=== PATIENT | male | born 1940 | race Asian ===

== ENCOUNTER → 2017-08-02 | Outpatient (CLI) | payer MEDICARE, OTHER ==
[~2017-08-02] MED LIST: ASPI81 PO; AZEL23SP NS; BRIM155OS OU; CALC-1009 PO; CHOL200016 PO; DUTA.5 PO; ESOM20CA31 PO; GABA-529 PO; METO25 PO; MULT-1239 PO; MV-M1TAB2 PO; SIMV5TAB6 PO; TAMS-1 PO; XALA2.5OS OU
== END | disposition home or self-care (01) ==
LOC: RADPV 12:34
PROVIDERS: ATTEND Internal Medicine Pulmonary Disease
DX: R06.00 Dyspnea, unspecified (principal); R05 Cough; I70.0 Atherosclerosis of aorta
CPT/HCPCS: 71020

== ENCOUNTER → 2018-01-19 | Outpatient (CLI) | payer MEDICARE, OTHER ==
[2018-01-19 12:34] LABS: BASOPHILS % (AUTO) 0.5 % (0.0-2.0); EOSINOPHILS % (AUTO) 3.2 % (1.0-6.0); HEMATOCRIT 47.5 % (41-53); HEMOGLOBIN 16.3 g/dL (13.5-17.5); LYMPHOCYTES # (AUTO) 1.5 K/uL (1.0-4.8); LYMPHOCYTES % (AUTO) 22.7 % (22.0-44.0); MEAN CORPUSCULAR HEMOGLOBIN 33.2 pg (26.0-34.0); MEAN CORPUSCULAR HGB CONC 34.4 G/dL (31.0-37.0); MEAN CORPUSCULAR VOLUME 96 fL (80-100); MONOCYTES # (AUTO) 0.6 K/uL (0.1-1.0); MONOCYTES % (AUTO) 8.8 % (2.0-9.0); NEUTROPHILS # (AUTO) 4.2 K/uL (1.8-7.7); NEUTROPHILS % (AUTO) 64.8 % (40.0-70.0); PLATELET COUNT (AUTO) 187 K/uL (150-450); RED BLOOD CELL COUNT(AUTO) 4.92 MIL/uL (4.50-5.90); RED CELL DISTRIBUTION WIDTH 12.7 % (11.5-14.5)
[2018-01-19 12:40] LABS: HEMOGLOBIN A1C 6.2 % (4.5-6.2)
[2018-01-19 12:58] LABS: ALBUMIN 3.7 g/dL (3.4-5.0); BILIRUBIN,TOTAL 0.7 mg/dL (0.1-1.0); CALCIUM, TOTAL 9.4 mg/dL (8.8-10.5); CREATININE 1.28 mg/dL (0.60-1.30); MAGNESIUM 2.1 mg/dL (1.80-2.40); PHOSPHORUS 3.5 mg/dL (2.5-4.9); POTASSIUM 4.3 mmol/L (3.5-5.1); THYROID STIMULATING HORMONE 1.82 uIU/mL (0.36-3.74); TOTAL PROTEIN, SERUM 7.4 g/dL (6.4-8.2)
[2018-01-19 12:59] LABS: BILIRUBIN,DIRECT 0.1 mg/dL (0.00-0.20)
[2018-01-19 13:03] LABS: FOLATE SERUM 13.7 ng/mL (5.4-)
== END | disposition home or self-care (01) ==
LOC: LABPV 11:57
PROVIDERS: ATTEND Internal Medicine Pulmonary Disease
DX: G25.81 Restless legs syndrome (principal); R53.1 Weakness; E78.00 Pure hypercholesterolemia, unspecified; I10 Essential (primary) hypertension; J44.9 Chronic obstructive pulmonary disease, unspecified; R79.89 Other specified abnormal findings of blood chemistry; Z79.899 Other long term (current) drug therapy
CPT/HCPCS: 82306; 82607; 82728; 82746; 83036; 83735; 84100; 84403; 84443

== ENCOUNTER → 2018-02-15 | Outpatient (CLI) | payer MEDICARE, OTHER ==
[2018-02-15 13:22] LABS: CHOL/HDL RATIO 2.5 (4.2-7.3)
== END | disposition home or self-care (01) ==
LOC: LABPV 10:40
PROVIDERS: ATTEND Internal Medicine Pulmonary Disease
DX: E78.5 Hyperlipidemia, unspecified (principal)

== ENCOUNTER → 2018-02-17 | Outpatient (CLI) | payer MEDICARE, OTHER ==
[~2018-02-17] VITALS: Ht 162.6 cm; Wt 72.0 kg
[2018-02-17 11:07] VITALS: BP 122/69
== END | disposition home or self-care (01) ==
LOC: SRCNTR 10:53
PROVIDERS: ATTEND Internal Medicine Clinical Cardiac Electrophysiology
DX: I10 Essential (primary) hypertension (principal); E78.00 Pure hypercholesterolemia, unspecified; R55 Syncope and collapse; Z79.82 Long term (current) use of aspirin
CPT/HCPCS: G0463

== ENCOUNTER → 2018-02-24 | Outpatient (CLI) | payer MEDICARE, OTHER ==
[~2018-02-24] VITALS: Ht 162.6 cm; Wt 72.0 kg
[2018-02-24 11:46] VITALS: BP 118/67
== END | disposition home or self-care (01) ==
LOC: SRCNTR 11:18
PROVIDERS: ATTEND Internal Medicine Clinical Cardiac Electrophysiology
DX: I10 Essential (primary) hypertension (principal); R00.1 Bradycardia, unspecified; E78.00 Pure hypercholesterolemia, unspecified; E78.5 Hyperlipidemia, unspecified
CPT/HCPCS: G0463

== ENCOUNTER → 2018-03-03 | Outpatient (CLI) | payer MEDICARE, OTHER ==
[~2018-03-03] VITALS: Ht 162.6 cm; Wt 72.0 kg
[2018-03-03 10:01] VITALS: BP 123/70
== END | disposition home or self-care (01) ==
LOC: SRCNTR 09:59
PROVIDERS: ATTEND Internal Medicine Clinical Cardiac Electrophysiology
DX: I10 Essential (primary) hypertension (principal); E78.5 Hyperlipidemia, unspecified; Z79.82 Long term (current) use of aspirin
CPT/HCPCS: G0463

== ENCOUNTER → 2018-03-21 | Outpatient (CLI) | payer MEDICARE, OTHER ==
[~2018-03-21] MED LIST changes: +CETI-290 PO; +FLAX100020 PO; +FLUT16H NASAL; +IPRAHFA IH; +LEVO5TAB29 PO; +LOSA50TA37 PO; +MONT10TA21 PO; +MULT-1259 PO; +NIFE30TA5 PO; +PSYL575P22 PO; +TIMO.5OS OU; +[UNRECOGNIZED DRUG - OTHER] PO
[2018-03-21 15:05] LABS: APPEARANCE,URINE CLEAR (CLEAR); BILIRUBIN,URINE NEGATIVE (NEGATIVE); GLUCOSE, URINE (UA) NEGATIVE (NEGATIVE); KETONES,URINE NEGATIVE (NEGATIVE); LEUKOCYTE ESTERASE ,URINE NEGATIVE (NEGATIVE); NITRATE,URINE NEGATIVE (NEGATIVE); OCCULT BLOOD,URINE NEGATIVE (NEGATIVE); PROTEIN,URINE NEGATIVE (NEGATIVE); UROBILINOGEN,URINE 0.2 mg/dL (<=1.0)
[2018-03-21 15:05] LABS: CREATININE 1.44 mg/dL (0.60-1.30); POTASSIUM 4.5 mmol/L (3.5-5.1)
[2018-03-21 15:35] LABS: HEMOGLOBIN A1C 6.1 % (4.5-6.2)
== END | disposition home or self-care (01) ==
LOC: LABPV 13:07
PROVIDERS: ATTEND Internal Medicine Nephrology
DX: E11.22 Type 2 diabetes mellitus with diabetic chronic kidney disease (principal); N18.2 Chronic kidney disease, stage 2 (mild); E78.5 Hyperlipidemia, unspecified
CPT/HCPCS: 83036

== ENCOUNTER → 2018-04-05 | Outpatient (CLI) | payer MEDICARE, OTHER ==
[~2018-04-05] VITALS: Ht 162.6 cm; Wt 72.0 kg
[~2018-04-05] MED LIST changes: -CETI-290 PO; -FLAX100020 PO; -FLUT16H NASAL; -IPRAHFA IH; -LEVO5TAB29 PO; -LOSA50TA37 PO; -MONT10TA21 PO; -MULT-1259 PO; -NIFE30TA5 PO; -PSYL575P22 PO; -TIMO.5OS OU; -[UNRECOGNIZED DRUG - OTHER] PO
[2018-04-05 12:11] VITALS: BP 132/62
== END | disposition home or self-care (01) ==
LOC: SRCNTR 10:11
PROVIDERS: ATTEND Internal Medicine Clinical Cardiac Electrophysiology
DX: Z45.018 Encounter for adjustment and management of other part of cardiac pacemaker (principal)
CPT/HCPCS: G0463

== ENCOUNTER → 2018-04-14 | Outpatient (CLI) | payer MEDICARE, OTHER ==
[~2018-04-14] VITALS: Ht 162.6 cm; Wt 74.0 kg
[~2018-04-14] MED LIST changes: +CETI-290 PO; +FLAX100020 PO; +FLUT16H NASAL; +IPRAHFA IH; +LEVO5TAB29 PO; +LOSA50TA37 PO; +MONT10TA21 PO; +MULT-1259 PO; +NIFE30TA5 PO; +PSYL575P22 PO; +TIMO.5OS OU; +[UNRECOGNIZED DRUG - OTHER] PO
[2018-04-14 11:40] VITALS: BP 124/50
== END | disposition home or self-care (01) ==
LOC: SRCNTR 10:54
PROVIDERS: ATTEND Internal Medicine Clinical Cardiac Electrophysiology
DX: Z45.018 Encounter for adjustment and management of other part of cardiac pacemaker (principal); I10 Essential (primary) hypertension; E78.00 Pure hypercholesterolemia, unspecified; I49.5 Sick sinus syndrome
CPT/HCPCS: G0463

== ENCOUNTER → 2018-04-21 | Outpatient (CLI) | payer MEDICARE, OTHER ==
[~2018-04-21] VITALS: Ht 162.6 cm; Wt 73.5 kg
[2018-04-21 11:45] VITALS: BP 102/47
== END | disposition home or self-care (01) ==
LOC: SRCNTR 11:30
PROVIDERS: ATTEND Internal Medicine Clinical Cardiac Electrophysiology
DX: Z45.018 Encounter for adjustment and management of other part of cardiac pacemaker (principal)
CPT/HCPCS: G0463

== ENCOUNTER 2018-04-26 07:53 | Inpatient (IN) | payer MEDICARE, OTHER ==
[~2018-04-26] VITALS: Ht 160 cm; Wt 71.9 kg
[2018-04-26] VITALS (19 sets, daily range): BP systolic 117–162; BP diastolic 64–89
[~2018-04-26 07:53] MED LIST changes: -CETI-290 PO; -FLAX100020 PO; -FLUT16H NASAL; -IPRAHFA IH; -LEVO5TAB29 PO; -LOSA50TA37 PO; -MONT10TA21 PO; -MULT-1259 PO; -NIFE30TA5 PO; -PSYL575P22 PO; +SODIUM CHLORIDE 0.9% 1,000 ML IV ONE; -TIMO.5OS OU; -[UNRECOGNIZED DRUG - OTHER] PO
[2018-04-26] MEDS ORDERED: SODIUM CHLORIDE 0.9% 1,000 ML IV ONE (08:00)
[2018-04-26 08:23] LABS: BASOPHILS % (AUTO) 0.8 % (0.0-2.0); EOSINOPHILS % (AUTO) 1.2 % (1.0-6.0); HEMATOCRIT 47.1 % (41-53); HEMOGLOBIN 16.5 g/dL (13.5-17.5); LYMPHOCYTES # (AUTO) 1.4 K/uL (1.0-4.8); LYMPHOCYTES % (AUTO) 24.4 % (22.0-44.0); MEAN CORPUSCULAR HEMOGLOBIN 34.1 pg (26.0-34.0); MEAN CORPUSCULAR HGB CONC 34.9 G/dL (31.0-37.0); MEAN CORPUSCULAR VOLUME 98 fL (80-100); MONOCYTES # (AUTO) 0.4 K/uL (0.1-1.0); MONOCYTES % (AUTO) 6.7 % (2.0-9.0); NEUTROPHILS # (AUTO) 3.7 K/uL (1.8-7.7); NEUTROPHILS % (AUTO) 66.9 % (40.0-70.0); PLATELET COUNT (AUTO) 195 K/uL (150-450); RED BLOOD CELL COUNT(AUTO) 4.82 MIL/uL (4.50-5.90); RED CELL DISTRIBUTION WIDTH 13.2 % (11.5-14.5)
[2018-04-26] MEDS ORDERED: [UNRECOGNIZED DRUG - OTHER] PO (08:29)
[2018-04-26] MEDS ORDERED: TIMO.5OS OU (08:29)
[2018-04-26] MEDS ORDERED: PSYL575P22 PO (08:29)
[2018-04-26] MEDS ORDERED: LOSA50TA37 PO (08:29)
[2018-04-26] MEDS ORDERED: CETI-290 PO (08:29)
[2018-04-26] MEDS ORDERED: MONT10TA21 PO (08:29)
[2018-04-26] MEDS ORDERED: MULT-1259 PO (08:29)
[2018-04-26] MEDS ORDERED: FLUT16H NASAL (08:29)
[2018-04-26] MEDS ORDERED: IPRAHFA IH (08:29)
[2018-04-26] MEDS ORDERED: LEVO5TAB29 PO (08:29)
[2018-04-26] MEDS ORDERED: NIFE30TA5 PO (08:29)
[2018-04-26] MEDS ORDERED: FLAX100020 PO (08:29)
[2018-04-26 08:35] LABS: PROTHROMBIN TIME 10.4 SEC (9.4-11.6)
[2018-04-26 08:39] LABS: CALCIUM, TOTAL 8.6 mg/dL (8.8-10.5); CREATININE 1.5 mg/dL (0.60-1.30); POTASSIUM 4.3 mmol/L (3.5-5.1)
[2018-04-26] MEDS ORDERED: SODIUM BICARBONATE 50 MEQ/50 ML VIAL ONE (09:17)
[2018-04-26] MEDS ORDERED: LIDOCAINE HCL/PF 1% 30 ML VIAL ONE ×2 (09:17→10:41)
[2018-04-26] MEDS ORDERED: BUPIVACAINE LIPOSOME/PF 1.3%-13.3MG/ML SUSPENSION 10 ML VIAL INJ ONE (10:45)
[2018-04-26] MEDS ORDERED: LIDOCAINE 1% 30 ML/SOD BICARB 8.4% 4 ML SQ ONE (10:45)
[2018-04-26] MEDS ORDERED: 0.9% SODIUM CHLORIDE 10 ML VIAL IVP ONE (12:00)
[2018-04-26] MEDS ORDERED: IPRATROPIUM BROMIDE HFA 17 MCG/PUFF 12.9 GM INHALER IH ONE (12:00)
[2018-04-26] MEDS ORDERED: LIDOCAINE HCL/PF 2% 5 ML VIAL INJ ONE (12:00)
[2018-04-26] MEDS ORDERED: PROPOFOL 1% 20 ML VIAL IVP ONE (12:00)
[2018-04-26] MEDS ORDERED: SODIUM CHLORIDE 0.9% 100 ML ONE (16:18)
[2018-04-26] MEDS: CeFAZolin 1 GM/DEXTROSE 50 ML IV SCH ×2 (16:25→21:37)
[2018-04-26] MEDS: ACETAMINOPHEN 325 MG TABLET PO PRN (16:25)
[2018-04-26] MEDS ORDERED: CETIRIZINE HCL 10 MG TABLET PO SCH (21:00)
[2018-04-26] MEDS: PSYLLIUM SEED ORANGE SF 5.8 GM/PACKET PO SCH (21:38)
[2018-04-27 03:00] VITALS: BP 156/86
[2018-04-27] MEDS: CeFAZolin 1 GM/DEXTROSE 50 ML IV SCH (04:23)
[2018-04-27 04:29] VITALS: BP 156/86
[2018-04-27 07:15] VITALS: BP 152/78
[2018-04-27] MEDS: ACETAMINOPHEN 325 MG TABLET PO PRN (08:31)
[2018-04-27] MEDS: PSYLLIUM SEED ORANGE SF 5.8 GM/PACKET PO SCH (08:33)
[2018-04-27] MEDS ORDERED: LOSARTAN POTASSIUM 50 MG TABLET PO SCH (09:00)
[2018-04-27] MEDS ORDERED: PANTOPRAZOLE SODIUM 40 MG DR TABLET PO SCH (09:00)
[2018-04-27] MEDS ORDERED: NIFEdipine 30 MG ER TABLET PO SCH (09:00)
[2018-04-27] MEDS ORDERED: MONTELUKAST SODIUM 10 MG TABLET PO SCH (09:00)
[2018-04-27 11:17] VITALS: BP 139/75
[2018-04-27] MEDS ORDERED: MIDAZOLAM HCL 2 MG/2 ML VIAL IVP ONE (12:00)
[2018-04-27] MEDS ORDERED: FentaNYL CITRATE-PF 100 MCG/2 ML VIAL IVP ONE (12:00)
[2018-04-27 16:08] VITALS: BP 155/73
== END 2018-04-27 18:10 | disposition home or self-care (01) | DRG 244 ==
LOC: 5N 07:53
PROVIDERS: ADMIT Internal Medicine Clinical Cardiac Electrophysiology; ATTEND Internal Medicine Clinical Cardiac Electrophysiology
PROC: 0JH606Z Insertion of Pacemaker, Dual Chamber into Chest Subcutaneous Tissue and Fascia, Open Approach (ICD-10-PCS; principal; 2018-04-26)
PROC: 02HK3JZ Insertion of Pacemaker Lead into Right Ventricle, Percutaneous Approach (ICD-10-PCS; 2018-04-26)
PROC: 02H63JZ Insertion of Pacemaker Lead into Right Atrium, Percutaneous Approach (ICD-10-PCS; 2018-04-26)
DX: I49.5 Sick sinus syndrome (principal); Z88.8 Allergy status to other drugs, medicaments and biological substances; Z91.011 Allergy to milk products
CPT/HCPCS: 33208; 71046; 76000; 83735; 88300; 93005; J0690; J2250; J2704; J3010; J3490; J7030; J7050

== ENCOUNTER → 2018-05-02 | Outpatient (CLI) | payer MEDICARE, OTHER ==
[~2018-05-02] MED LIST changes: +CETI-290 PO; +FLAX100020 PO; +FLUT16H NASAL; +IPRAHFA IH; +LEVO5TAB29 PO; +LOSA50TA37 PO; -METO25 PO; +MONT10TA21 PO; +MULT-1259 PO; -MV-M1TAB2 PO; +NIFE30TA5 PO; +PSYL575P22 PO; -SODIUM CHLORIDE 0.9% 1,000 ML IV ONE; +TIMO.5OS OU; +[UNRECOGNIZED DRUG - OTHER] PO
[2018-05-02 13:43] VITALS: BP 135/73
== END | disposition home or self-care (01) ==
LOC: SRCNTR 11:24
PROVIDERS: ATTEND Internal Medicine Clinical Cardiac Electrophysiology
DX: Z45.018 Encounter for adjustment and management of other part of cardiac pacemaker (principal); I10 Essential (primary) hypertension; I49.5 Sick sinus syndrome; E78.00 Pure hypercholesterolemia, unspecified
CPT/HCPCS: G0463

== ENCOUNTER → 2018-05-05 | Outpatient (CLI) | payer MEDICARE, OTHER ==
[~2018-05-05] VITALS: Ht 162.6 cm; Wt 73.0 kg
[2018-05-05 10:00] VITALS: BP 140/88
== END | disposition home or self-care (01) ==
LOC: SRCNTR 09:34
PROVIDERS: ATTEND Internal Medicine Clinical Cardiac Electrophysiology
DX: Z45.018 Encounter for adjustment and management of other part of cardiac pacemaker (principal); I10 Essential (primary) hypertension; E78.00 Pure hypercholesterolemia, unspecified; R21 Rash and other nonspecific skin eruption
CPT/HCPCS: G0463

== ENCOUNTER → 2018-05-09 | Outpatient (CLI) | payer MEDICARE, OTHER ==
[~2018-05-09] VITALS: Ht 162.6 cm; Wt 73.5 kg
[2018-05-09 15:30] VITALS: BP 123/68
== END | disposition home or self-care (01) ==
LOC: SRCNTR 11:20
PROVIDERS: ATTEND Internal Medicine Clinical Cardiac Electrophysiology
DX: Z45.018 Encounter for adjustment and management of other part of cardiac pacemaker (principal)
CPT/HCPCS: G0463

== ENCOUNTER → 2018-05-26 | Outpatient (CLI) | payer MEDICARE, OTHER ==
[~2018-05-26] VITALS: Ht 162.6 cm; Wt 74.0 kg
[~2018-05-26] MED LIST changes: -MULT-1239 PO
[2018-05-26 13:23] VITALS: BP 140/90
== END | disposition home or self-care (01) ==
LOC: SRCNTR 10:58
PROVIDERS: ATTEND Internal Medicine Clinical Cardiac Electrophysiology
DX: Z45.018 Encounter for adjustment and management of other part of cardiac pacemaker (principal); I10 Essential (primary) hypertension; E78.00 Pure hypercholesterolemia, unspecified; J44.9 Chronic obstructive pulmonary disease, unspecified
CPT/HCPCS: G0463

== ENCOUNTER → 2018-07-28 | Outpatient (CLI) | payer MEDICARE, OTHER ==
[~2018-07-28] VITALS: Ht 162.6 cm; Wt 74.5 kg
[~2018-07-28] MED LIST changes: -CHOL200016 PO; +CHOL200059 PO; +LOSA50TA25 PO; -LOSA50TA37 PO
[2018-07-28 10:22] VITALS: BP 151/76
== END | disposition home or self-care (01) ==
LOC: SRCNTR 10:06
PROVIDERS: ATTEND Internal Medicine Clinical Cardiac Electrophysiology
DX: Z45.018 Encounter for adjustment and management of other part of cardiac pacemaker (principal); R21 Rash and other nonspecific skin eruption; I10 Essential (primary) hypertension; E78.00 Pure hypercholesterolemia, unspecified
CPT/HCPCS: G0463

== ENCOUNTER → 2018-08-22 | Outpatient (CLI) | payer MEDICARE, OTHER ==
[2018-08-22 11:53] LABS: CREATININE,URINE RANDOM 178.7 mg/dL (30.0-125.0)
[2018-08-22 12:08] LABS: ALBUMIN 3.7 g/dL (3.4-5.0); BILIRUBIN,TOTAL 0.8 mg/dL (0.1-1.0); CALCIUM, TOTAL 8.9 mg/dL (8.8-10.5); CREATININE 1.47 mg/dL (0.60-1.30); POTASSIUM 4.6 mmol/L (3.5-5.1); TOTAL PROTEIN, SERUM 7.5 g/dL (6.4-8.2)
== END | disposition home or self-care (01) ==
LOC: LABPV 10:24
PROVIDERS: ATTEND Internal Medicine Nephrology
DX: E11.22 Type 2 diabetes mellitus with diabetic chronic kidney disease (principal); N18.2 Chronic kidney disease, stage 2 (mild); E78.5 Hyperlipidemia, unspecified; N20.0 Calculus of kidney
CPT/HCPCS: 82570; 84156

== ENCOUNTER → 2018-09-08 | Outpatient (CLI) | payer MEDICARE, OTHER ==
[~2018-09-08] VITALS: Ht 162.6 cm; Wt 73.5 kg
[2018-09-08 11:13] VITALS: BP 132/68
== END | disposition home or self-care (01) ==
LOC: SRCNTR 10:46
PROVIDERS: ATTEND Internal Medicine Clinical Cardiac Electrophysiology
DX: Z45.018 Encounter for adjustment and management of other part of cardiac pacemaker (principal); E78.00 Pure hypercholesterolemia, unspecified; I10 Essential (primary) hypertension; R21 Rash and other nonspecific skin eruption
CPT/HCPCS: G0463

== ENCOUNTER → 2019-01-02 | Outpatient (CLI) | payer MEDICARE, OTHER ==
[~2019-01-02] MED LIST changes: +CETI-170 PO; -CETI-290 PO; -LOSA50TA25 PO; +LOSA50TA64 PO; +SIMV5TAB59 PO; -SIMV5TAB6 PO
[2019-01-02 13:40] LABS: CREATININE,SERUM FOR CRCL 1.45 mg/dL (0.60-1.30)
[2019-01-02 13:46] LABS: CALCIUM, TOTAL 9.8 mg/dL (8.8-10.5); CHOL/HDL RATIO 2.4 (4.2-7.3); CREATININE 1.44 mg/dL (0.60-1.30); POTASSIUM 4.2 mmol/L (3.5-5.1)
[2019-01-02 15:20] LABS: CREATININE,URINE 53.5 mg/dL (30.0-125.0)
== END | disposition home or self-care (01) ==
LOC: LABPV 10:29
PROVIDERS: ATTEND Internal Medicine Nephrology
DX: I12.9 Hypertensive chronic kidney disease with stage 1 through stage 4 chronic kidney disease, or unspecified chronic kidney disease (principal); E11.22 Type 2 diabetes mellitus with diabetic chronic kidney disease; N18.9 Chronic kidney disease, unspecified; E78.49 Other hyperlipidemia; R80.8 Other proteinuria; R73.09 Other abnormal glucose
CPT/HCPCS: 81050; 82575; 83036; 84156; 84300

== ENCOUNTER → 2019-01-23 | Outpatient (CLI) | payer MEDICARE, OTHER ==
[~2019-01-23] VITALS: Ht 162.6 cm; Wt 78.0 kg
[~2019-01-23] MED LIST changes: -CETI-170 PO; +CETI10TA59 PO
[2019-01-23 13:19] VITALS: BP 136/78
== END | disposition home or self-care (01) ==
LOC: SRCNTR 11:35
PROVIDERS: ATTEND Internal Medicine Clinical Cardiac Electrophysiology
DX: E78.00 Pure hypercholesterolemia, unspecified (principal); I10 Essential (primary) hypertension
CPT/HCPCS: G0463

== ENCOUNTER → 2019-09-18 | Outpatient (CLI) | payer MEDICARE, OTHER | END | disposition home or self-care (01) | LOC: RADPV 08:32 | PROVIDERS: ATTEND Internal Medicine | DX: I70.0 Atherosclerosis of aorta (principal); Z95.0 Presence of cardiac pacemaker ==